=== PATIENT | male | born 2000 | race American Indian/Alaskan Native ===

== ENCOUNTER 2018-11-05 10:55 | Emergency (ER) | payer MEDICAID, OTHER ==
[2018-11-05 11:02] VITALS: BP 127/76
--- NOTE | 2018-11-05 13:11 | Emergency Department Report ---
ED ENT HPI - General Chief complaint: Earache Stated complaint: R EARACHE/CHILLS/FEVER Time Seen by Provider: 11/05/18 12:56 Source: patient Mode of arrival: Ambulatory Limitations: No Limitations - History of Present Illness Initial comments: 17-year-old male comes in for right ear pain chills and fever 2 days. Patient has subjective fever isn't taking cold and flu yesterday. Takes naproxen and muscle relaxant for his pain. Patient has an allergy to ibuprofen. complaint: ear pain Onset/Timin -: days(s) Location: R ear Severity: moderate Quality: aching Consistency: constant Improves with: none Worsens with: none - Related Data Previous Rx's Medication Instructions Recorded Last Taken Type Amoxicillin [Amoxicillin TAB] 875 mg PO BID #20 tablet 11/05/18 Unknown Rx Naproxen [EC-Naproxen] 375 mg PO BID PRN #20 tablet. 11/05/18 Unknown Rx Allergies Allergy/AdvReac Type Severity Reaction Status Date / Time ibuprofen [From Motrin] Allergy Seizure Verified 11/05/18 10:56 ED Dental HPI - General Chief complaint: Earache Stated complaint: R EARACHE/CHILLS/FEVER Time Seen by Provider: 11/05/18 12:56 Source: patient Mode of arrival: Ambulatory Limitations: No Limitations - Related Data Previous Rx's Medication Instructions Recorded Last Taken Type Amoxicillin [Amoxicillin TAB] 875 mg PO BID #20 tablet 11/05/18 Unknown Rx Naproxen [EC-Naproxen] 375 mg PO BID PRN #20 tablet. 11/05/18 Unknown Rx Allergies Allergy/AdvReac Type Severity Reaction Status Date / Time ibuprofen [From Motrin] Allergy Seizure Verified 11/05/18 10:56 ED Review of Systems ROS: Stated complaint: R EARACHE/CHILLS/FEVER Other details as noted in HPI Comment: All other systems reviewed and negative ENT: ear pain ED Past Medical Hx - Past Medical History Hx Seizures: Yes - Social History Smoking Status: Never Smoker Substance Use Type: Marijuana - Medications Home Medications: Home Medications Medication Instructions Recorded Confirmed Last Taken Type Amoxicillin [Amoxicillin TAB] 875 mg PO BID #20 tablet 11/05/18 Unknown Rx Naproxen [EC-Naproxen] 375 mg PO BID PRN #20 tablet. 11/05/18 Unknown Rx ED Physical Exam - General Limitations: No Limitations General appearance: alert, in no apparent distress - Head Head exam: Present: atraumatic, normocephalic - Eye Eye exam: Present: normal appearance, EOMI - Expanded ENT Exam Expanded TM/Canal exam: Erythema: Right TM, Loss of Landmarks: Right TM - Neck Neck exam: Present: normal inspection - Respiratory Respiratory exam: Present: normal lung sounds bilaterally. Absent: respiratory distress - Cardiovascular Cardiovascular Exam: Present: regular rate, normal rhythm. Absent: systolic murmur, diastolic murmur, rubs, gallop - Extremities Exam Extremities exam: Present: normal inspection - Neurological Exam Neurological exam: Present: normal gait - Psychiatric Psychiatric exam: Present: normal affect, normal mood - Skin Skin exam: Present: warm, dry, intact, normal color. Absent: rash ED Course Vital Signs 11/05/18 11:00 Temperature 98.8 F Pulse Rate 93 H Respiratory 18 Rate Blood Pressure 127/76 O2 Sat by Pulse 98 Oximetry ED Medical Decision Making - Medical Decision Making Meningeal now comes in for right ear a fever and chills. This patient has otitis media of the right ear. Patient placed on amoxicillin 875 mg twice a day and naproxen 500 mg by mouth 3 times a day. Advised to wear the patient has an allergic reaction to ibuprofen but patient reports he has been taking naproxen at home without any complications. Critical care attestation.: If time is entered above; I have spent that time in minutes in the direct care of this critically ill patient, excluding procedure time. ED Disposition Clinical Impression: Otitis media Qualifiers: Otitis media type: suppurative Chronicity: acute Laterality: right Recurrence: non-recurrent Spontaneous tympanic membrane rupture: without spontaneous rupture Qualified Code(s): H66.001 - Acute suppurative otitis media without spontaneous rupture of ear drum, right ear Disposition: DC-01 TO HOME OR SELFCARE Is pt being admited?: No Does the pt Need Aspirin: No Condition: Stable Instructions: Otitis Media (ED) Additional Instructions: Complete antibiotics as prescribed. Naproxen as needed for pain management. Symptoms persisted and is worse please follow up with primary care provider Prescriptions: Amoxicillin [Amoxicillin TAB] 875 mg PO BID #20 tablet Naproxen [EC-Naproxen] 375 mg PO BID PRN #20 tablet.dr PRN Reason: Pain , Severe (7-10) Referrals: HARSHAD JEFF MD [Primary Care Provider] - 3-5 Days Forms: Work/School Release Form(ED), Accompanied Note
== END 2018-11-05 14:00 | disposition home or self-care (01) ==
LOC: ED 10:55
DX: H66.001 Acute suppurative otitis media without spontaneous rupture of ear drum, right ear (principal); F12.10 Cannabis abuse, uncomplicated
CPT/HCPCS: 99282

== ENCOUNTER 2019-09-02 07:44 | Emergency (ER) | payer SELFPAY ==
[2019-09-02 07:52] VITALS: BP 126/68
--- NOTE | 2019-09-02 09:26 | Emergency Department Report ---
HPI - General Chief Complaint: Headache Time Seen by Provider: 09/02/19 09:16 - HPI HPI: 18-year-old -Stateless male presents to the emergency department with complaint of a 2-day history of intermittent headache and some muscle tension/spasms in the neck and back. He says that he has a history of muscle spasms. The headache is to the front and posterior and he repeatedly says that it is "mild", and gives it a score of 3 out of 10 in intensity. He denies any vision change, slurred speech, fever, numbness or paresthesias, or any other neurological deficits. No primary care physician. No recent travel or sick contacts at home. It should be noted that the patient has a listed allergy of ibuprofen that apparently causes seizures. However he has no allergy to naproxen which he has taken many times without any side effects, reactions, etc. ED Past Medical Hx - Past Medical History Hx Seizures: Yes (only with taking motrin) - Social History Smoking Status: Current Every Day Smoker Substance Use Type: None - Medications Home Medications: Home Medications Medication Instructions Recorded Confirmed Last Taken Type Amoxicillin [Amoxicillin TAB] 875 mg PO BID #20 tablet 11/05/18 Unknown Rx Cyclobenzaprine [Flexeril] 10 mg PO TID PRN #10 tablet 09/02/19 Unknown Rx Naproxen [EC-Naproxen] 375 mg PO BID PRN #20 tablet. 09/02/19 Unknown Rx ED Review of Systems ROS: Stated complaint: HEADACHE 2DAYS Other details as noted in HPI Comment: All other systems reviewed and negative Constitutional: denies: chills, fever Eyes: denies: eye pain, vision change ENT: denies: ear pain, throat pain Respiratory: denies: cough, shortness of breath Cardiovascular: denies: chest pain, palpitations Musculoskeletal: myalgia. denies: joint swelling Neurological: denies: headache, weakness, numbness, paresthesias Physical Exam - Physical Exam Vital Signs: Vital Signs 09/02/19 07:51 Temperature 97.8 F Pulse Rate 70 Respiratory 18 Rate Blood Pressure 126/68 [Right] O2 Sat by Pulse 99 Oximetry Physical Exam: GENERAL: The patient is well-developed well-nourished. HENT: Normocephalic. Atraumatic. Patient has moist mucous membranes. EYES: Extraocular motions are intact. NECK: Supple. Trachea is midline. No midline tenderness to palpation, step-off or deformity. There is some reproducible bilateral paraspinal tenderness with associated taut musculature that goes down into the trapezius muscle. CHEST/LUNGS: Clear to auscultation. There is no respiratory distress noted. HEART/CARDIOVASCULAR: Regular. There is no tachycardia. There is no murmur. ABDOMEN: There is no abdominal distention. SKIN: Skin is warm and dry. NEURO: The patient is awake, alert, and oriented. The patient is cooperative. The patient has no focal neurologic deficits. Normal speech. Cranial nerves II through XII grossly intact. No facial asymmetry. MUSCULOSKELETAL: There is no tenderness or deformity. There is no limitation range of motion. There is no evidence of acute injury. ED Course Vital Signs 09/02/19 07:51 Temperature 97.8 F Pulse Rate 70 Respiratory 18 Rate Blood Pressure 126/68 [Right] O2 Sat by Pulse 99 Oximetry ED Medical Decision Making - Medical Decision Making This patient presents to the emergency department with a 2-day history of intermittent headache that appears most consistent with a tension headache. He says that the pain starts in what is the bilateral paraspinal muscle and he has some tight musculature that radiates down into the trapezius muscle. He does not have any focal, motor or sensory deficits and his cranial nerves are intact. Vital signs stable throughout his ED course. Patient repeatedly says that the level of discomfort is very mild. For all these reasons the patient does not appear to need any advanced imaging of the head/brain. He will be placed on naproxen and Flexeril. He has been given referrals for primary care and an orthopedist. He will return to the ER with any worsening of his symptoms or any acute distress. As previously stated, he has an allergy to ibuprofen that allegedly causes seizures, but the patient has no allergy to naproxen which he has taken multiple times including recently. Critical Care Time: No Critical care attestation.: If time is entered above; I have spent that time in minutes in the direct care of this critically ill patient, excluding procedure time. ED Disposition Clinical Impression: Muscle spasm Headache Qualifiers: Headache type: unspecified Headache chronicity pattern: episodic headache Intractability: not intractable Qualified Code(s): R51 - Headache Disposition: - TO HOME OR SELFCARE Is pt being admited?: No Condition: Stable Instructions: Tension Headache (ED), Muscle Spasm (ED) Additional Instructions: Please follow-up with a primary care physician in the next few days. I am also giving you a referral for a local orthopedist, Dr. Kaur, to follow-up regarding your history of back pains and muscle spasms. Return to the emergency department with any worsening of your symptoms or any acute distress. You have been prescribed a medication that is sedating and therefore should not be taken prior to driving, working, and responsible for children and in no way should be mixed with alcohol of any quantity. Prescriptions: Naproxen [EC-Naproxen] 375 mg PO BID PRN #20 tablet. PRN Reason: Pain , Severe (7-10) Cyclobenzaprine [Flexeril] 10 mg PO TID PRN #10 tablet PRN Reason: Muscle Spasm Referrals: RHYS BARR MD [Staff Physician] - 3-5 Days NARCISO KAUR MD [Staff Physician] - 3-5 Days [facility] [Provider Group] - 3-5 Days Time of Disposition: 09:26
[2019-09-02] MEDS ORDERED: NAPROXEN 500 MG TAB PO ONE (10:00)
== END 2019-09-02 09:55 | disposition home or self-care (01) ==
LOC: ED 07:44
DX: R51 Headache (principal); M62.838 Other muscle spasm; R56.9 Unspecified convulsions; F17.200 Nicotine dependence, unspecified, uncomplicated; Z79.2 Long term (current) use of antibiotics; Z79.899 Other long term (current) drug therapy; Z88.6 Allergy status to analgesic agent
CPT/HCPCS: 99282

== ENCOUNTER 2020-07-18 20:53 | Emergency (ER) | payer SELFPAY ==
[2020-07-18 21:32] VITALS: BP 131/67
[2020-07-18 22:15] LABS: Basophils % (Auto) 0.6 % (0.0-1.8); Eosinophils # (Auto) 0.2 K/mm3 (0.0-0.4); Eosinophils % (Auto) 3.2 % (0.0-4.3); Hematocrit 42.2 % (35.5-45.6); Hemoglobin 14.1 gm/dl (11.8-15.2); Lymphocytes # (Auto) 2.8 K/mm3 (1.2-5.4); Lymphocytes % (Auto) 44.3 % (13.4-35.0); Mean Corpuscular HGB Conc 33 % (32-34); Mean Corpuscular Volume 86 fl (84-94); Monocytes # (Auto) 0.5 K/mm3 (0.0-0.8); Monocytes % (Auto) 7.2 % (0.0-7.3); Platelet Count 221 K/mm3 (140-440); Red Blood Count 4.89 M/mm3 (3.65-5.03); Red Cell Distribution Width 13.3 % (13.2-15.2)
[2020-07-18 22:40] LABS: Alanine Aminotransferase 11 units/L (7-56); Albumin 4.2 g/dL (3.9-5); BUN/Creatinine Ratio 15; Blood Urea Nitrogen 15 mg/dL (9-20); Calcium 9.3 mg/dL (8.4-10.2); Hemolysis Index 5
--- NOTE | 2020-07-18 23:00 | XRay Report ---
CHEST 2 VIEWS INDICATION / CLINICAL INFORMATION: chest pain. COMPARISON: None available. FINDINGS: SUPPORT DEVICES: None. HEART / MEDIASTINUM: No significant abnormality. LUNGS / PLEURA: No significant pulmonary or pleural abnormality. No pneumothorax. ADDITIONAL FINDINGS: No significant additional findings. IMPRESSION: No acute cardiopulmonary abnormality. Signer Name: Francis Miranda MD Signed: 07/18/2020 10:55 PM Workstation Name: [id number]
--- NOTE | 2020-07-19 01:47 | Emergency Department Report ---
ED Chest Pain HPI - General Chief Complaint: Chest Pain Stated Complaint: CHEST PAIN/DIZZINESS PUI?: No Time Seen by Provider: 07/19/20 00:43 Source: patient Mode of arrival: Ambulatory Limitations: No Limitations - History of Present Illness MD Complaint: chest pain -: Gradual Pain Radiation: none Severity: mild Quality: tightness Consistency: constant Improves With: nothing Worsens With: nothing Other Symptoms: denies: fever, acid taste in mouth, leg swelling, palpitations, burping Treatments Prior to Arrival: none - Related Data Previous Rx's Medication Instructions Recorded Last Taken Type Amoxicillin [Amoxicillin TAB] 875 mg PO BID #20 tablet 11/05/18 Unknown Rx Cyclobenzaprine [Flexeril] 10 mg PO TID PRN #10 tablet 09/02/19 Unknown Rx Naproxen [EC-Naproxen] 375 mg PO BID PRN #20 tablet. 09/02/19 Unknown Rx Allergies Allergy/AdvReac Type Severity Reaction Status Date / Time ibuprofen [From Motrin] Allergy Seizure Verified 11/05/18 10:56 Heart Score - HEART Score History: Slightly suspicious EKG: Normal Age: < 45 Risk factors: No known risk factors Troponin: < normal limit HEART Score: 0 ED Review of Systems ROS: Stated complaint: CHEST PAIN/DIZZINESS Other details as noted in HPI Comment: All other systems reviewed and negative ED Past Medical Hx - Past Medical History Hx Seizures: Yes (only with taking motrin) - Social History Smoking Status: Current Every Day Smoker - Medications Home Medications: Home Medications Medication Instructions Recorded Confirmed Last Taken Type Amoxicillin [Amoxicillin TAB] 875 mg PO BID #20 tablet 11/05/18 Unknown Rx Cyclobenzaprine [Flexeril] 10 mg PO TID PRN #10 tablet 09/02/19 Unknown Rx Naproxen [EC-Naproxen] 375 mg PO BID PRN #20 tablet. 09/02/19 Unknown Rx ED Physical Exam - General Limitations: No Limitations General appearance: alert, in no apparent distress - Head Head exam: Present: atraumatic, normocephalic - Eye Eye exam: Present: normal appearance - ENT ENT exam: Present: mucous membranes moist - Neck Neck exam: Present: normal inspection - Respiratory Respiratory exam: Present: normal lung sounds bilaterally. Absent: respiratory distress - Cardiovascular Cardiovascular Exam: Present: regular rate, normal rhythm. Absent: systolic murmur, diastolic murmur, rubs, gallop - GI/Abdominal GI/Abdominal exam: Present: soft, normal bowel sounds - Rectal Rectal exam: Present: deferred - Extremities Exam Extremities exam: Present: normal inspection - Back Exam Back exam: Present: normal inspection - Neurological Exam Neurological exam: Present: alert, oriented X3 - Psychiatric Psychiatric exam: Present: normal affect, normal mood - Skin Skin exam: Present: warm, dry, intact, normal color. Absent: rash ED Course Vital Signs 07/18/20 21:30 Temperature 98.0 F Pulse Rate 83 Respiratory 18 Rate Blood Pressure 131/67 O2 Sat by Pulse 99 Oximetry ROSHAN score - Roshan Score Age > 65: (0) No Aspirin use within the Past 7 Days: (0) No 3 or more CAD Risk Factors: (0) No 2 or more Angina events in past 24 hrs: (0) No Known CAD with more than 50% Stenosis: (0) No Elevated Cardiac Markers: (0) No ST Deviation Greater than 0.5mm: (0) No ROSHAN Score: 0 ED Medical Decision Making - Lab Data Result diagrams: 07/18/20 22:06 07/18/20 22:06 - EKG Data EKG shows normal: sinus rhythm Rate: normal - EKG Data When compared to previous EKG there are: no significant change Interpretation: no acute changes - Medical Decision Making This patient presents with chest pain that is very unlikely angina or acute coronary syndrome. The emergency department evaluation has not identified any cause for suspicion that this chest pain has a cardiac etiology. Based on their history, EKG (which showed no evidence of ischemia or infarction) and imaging, in addition to the patient's physical exam, I see no evidence at this time for a malignant etiology for the patient's chest pain. There is no acute evidence for pulmonary embolus, acute myocardial infarction, pneumothorax, Boerhaeve syndrome, cardiac tamponade, thoracic artery dissection, or any other emergent cardiac, pulmonary or aortic pathology. Given the low pre-test probability for cardiac etiology of chest pain and the absence of any sign of ischemia or infarction, discharge for outpatient follow-up and further evaluation is reasonable. I have explained to the patient that even though a cardiac problem is very unli aleshia, follow-up and further testing is required to reduce further the already small uncertainty that exists. Other life-threatening diagnoses have been considered. The patient understands the need to return immediately if their symptoms worsen or they develop any new symptoms, and not to engage in any significant exertional activity until follow-up is obtained. Critical care attestation.: If time is entered above; I have spent that time in minutes in the direct care of this critically ill patient, excluding procedure time. ED Disposition Clinical Impression: Chest pain Disposition: DC-01 TO HOME OR SELFCARE Is pt being admited?: No Does the pt Need Aspirin: No Condition: Stable Instructions: Nonspecific Chest Pain, Adult Referrals: PRIMARY CARE, [Primary Care Provider] - 3-5 Days [facility] [Provider Group] - 3-5 Days
--- NOTE | 2020-07-19 11:25 | Electrocardiograph Report ---
[facility] Test Date: 2020-07-18 Test Time: 21:35:09 Pat Name: KENRICK VILLANUEVA Department: Room: Gender: M Senior Asset Manager: MICHELLE : 2000 Requested By: CARLY CHRISTIAN Order Number: [id number] Reading MD: El Almaraz Measurements Intervals [place] Rate: 67 P: 27 AL: 188 QRS: 74 QRSD: 102 T: 53 QT: 386 QTc: 409 Interpretive Statements Sinus rhythm No previous ECG available for comparison Electronically Signed On 07-19-2020 8:24:54 PDT by El Almaraz
== END 2020-07-19 02:03 | disposition home or self-care (01) ==
LOC: ED 20:53
DX: R07.9 Chest pain, unspecified (principal); F17.200 Nicotine dependence, unspecified, uncomplicated; Z79.899 Other long term (current) drug therapy; Z86.69 Personal history of other diseases of the nervous system and sense organs; Z88.6 Allergy status to analgesic agent
CPT/HCPCS: 36415; 71046; 80053; 84484; 85025; 93005

== ENCOUNTER 2021-02-28 08:30 | Emergency (ER) | payer SELFPAY ==
[2021-02-28 08:46] VITALS: BP 126/70
--- NOTE | 2021-02-28 08:49 | Emergency Department Report ---
ED General Adult HPI - General Chief complaint: Headache Stated complaint: I have a headache PUI?: No Time Seen by Provider: 02/28/21 08:47 Source: patient, RN notes reviewed Mode of arrival: Ambulatory Limitations: No Limitations - History of Present Illness Initial comments: The patient is a pleasant and cooperative 20-year-old gentleman. He is not known to myself previously. He denies chronic medical conditions. He presents to the ER today with a complaint of nontraumatic bitemporal and frontal pain, present for a few days. He took Aleve at home, as well as Benadryl, and melanin/melatonin. The headache is not sudden or thunderclap in nature. The headache is not maximal in intensity. The headache is not described as the worst headache of his life. There is no trauma, motor vehicle accident, or recent chiropractic manipulation. The patient reports that he wears glasses, and thinks that his glasses prescription is not up-to-date, and he believes that he needs his glasses prescription to be adjusted. However, he presented to the emergency room, "just to be sure." He denies ocular pain, loss of visual acuity, neck pain, chest pain, abdominal pain, shortness of breath, nausea, vomiting, diarrhea, weakness and ataxia. -: Gradual, days(s) Location: head Severity scale (0 -10): 8 Consistency: intermittent Improves with: none Worsens with: none - Related Data Previous Rx's Medication Instructions Recorded Last Taken Type Acetaminophen [Non-Aspirin Extra 650 mg PO Q6HR PRN #30 tablet 02/28/21 Unknown Rx Strength] Metoclopramide [Reglan] 10 mg PO QID PRN #30 tablet 02/28/21 Unknown Rx Allergies Allergy/AdvReac Type Severity Reaction Status Date / Time ibuprofen [From Motrin] Allergy Seizure Verified 11/05/18 10:56 ED Review of Systems ROS: Stated complaint: MIGRAINES Other details as noted in HPI Comment: All other systems reviewed and negative Eyes: denies: eye pain, eye discharge ENT: denies: dental pain Neurological: headache. denies: weakness, numbness, paresthesias, confusion, abnormal gait, vertigo ED Past Medical Hx - Past Medical History Hx Seizures: Yes (only with taking motrin) - Social History Smoking Status: Current Every Day Smoker - Medications Home Medications: Home Medications Medication Instructions Recorded Confirmed Last Taken Type Acetaminophen [Non-Aspirin Extra 650 mg PO Q6HR PRN #30 tablet 02/28/21 Unknown Rx Strength] Metoclopramide [Reglan] 10 mg PO QID PRN #30 tablet 02/28/21 Unknown Rx ED Physical Exam - General Limitations: No Limitations General appearance: alert, in no apparent distress - Head Head exam: Present: atraumatic, normocephalic - Eye Eye exam: Present: normal appearance, PERRL, EOMI, other (Visual acuity intact to finger counting, color perception, reading at a close distance). Absent: nystagmus - ENT ENT exam: Present: normal exam, normal orophraynx, mucous membranes moist, normal external ear exam - Neck Neck exam: Present: normal inspection, full ROM. Absent: tenderness, meningismus - Respiratory Respiratory exam: Present: normal lung sounds bilaterally. Absent: respiratory distress, wheezes, rales, rhonchi, stridor, decreased breath sounds - Cardiovascular Cardiovascular Exam: Present: regular rate, normal rhythm, normal heart sounds. Absent: bradycardia, tachycardia, irregular rhythm, systolic murmur, diastolic murmur, rubs, gallop - GI/Abdominal GI/Abdominal exam: Present: soft. Absent: distended, tenderness, guarding, rebound, rigid, pulsatile mass - Rectal Rectal exam: Present: deferred - Extremities Exam Extremities exam: Present: normal inspection, full ROM, other (2+ pulses noted in the bilateral upper and lower extremities. There is no palpable cord. negative Homans sign. Muscular compartments are soft. The pelvis is stable.). Absent: pedal edema, calf tenderness - Back Exam Back exam: Present: normal inspection, full ROM. Absent: tenderness, CVA tenderness (R), CVA tenderness (L), paraspinal tenderness, vertebral tenderness - Neurological Exam Neurological exam: Present: alert, oriented X3, normal gait, reflexes normal, ot her (There is no facial droop. The tongue is midline. Extraocular movements are intact bilaterally. There is 5 out of 5 strength in bilateral upper and lower extremities. Sensation is intact to light touch bilateral upper and lower extremities. There is no past-pointing. There is no pronator drift.). Absent: motor sensory deficit - Psychiatric Psychiatric exam: Present: normal affect, normal mood - Skin Skin exam: Present: warm, dry, intact, normal color. Absent: rash ED Course Vital Signs 02/28/21 02/28/21 02/28/21 08:42 09:12 09:28 Temperature 98.0 F Pulse Rate 85 Respiratory 18 16 16 Rate Blood Pressure 126/70 [Left] O2 Sat by Pulse 96 100 Oximetry ED Medical Decision Making - Lab Data Vital Signs 02/28/21 02/28/21 02/28/21 08:42 09:12 09:28 Temperature 98.0 F Pulse Rate 85 Respiratory 18 16 16 Rate Blood Pressure 126/70 [Left] O2 Sat by Pulse 96 100 Oximetry - Medical Decision Making Differential diagnosis, including but not limited to: Migraine headache, sinus headache, tension headache, cluster headache, encounter for medical screening examination Assessment and plan: 20-year-old gentleman, who is afebrile, with reassuring vital signs, with a GCS of 15, with benign temporal discomfort, visual acuity intact to finger counting, color perception, reading at a close distance, normal neurologic exam (there is no facial droop. The tongue is midline. Extraocular movements are intact bilaterally. There is 5 out of 5 strength in bilateral upper and lower extremities. Sensation is intact to light touch bilateral upper and lower extremities. There is no past-pointing. There is no pronator drift. There is normal [id number]. There is a normal gait.) With no direct or consensual photophobia, normal pupils, nursing documented visual acuity reviewed and appreciated. Patient resting comfortably in stretcher, in no acute distress, and on his cell phone. Does not appear to have an emergent medical condition at this time He can take [id number]-[id number] acetaminophen and/or Reglan. He can follow-up with his outpatient tobacco sizer or byproducts maker for outpatient visual testing. Return precautions reviewed. All questions answered Critical care attestation.: If time is entered above; I have spent that time in minutes in the direct care of this critically ill patient, excluding procedure time. ED Disposition Clinical Impression: Headache Qualifiers: Headache type: unspecified Headache chronicity pattern: acute headache Intractability: not intractable Qualified Code(s): R51.9 - Headache, unspecified Disposition: 01 HOME / SELF CARE / HOMELESS Is pt being admited?: No Does the pt Need Aspirin: No Condition: Good Instructions: Visual Disturbances Additional Instructions: Please take the prescribed pain medications as needed and directed. Please follow-up with your outpatient tobacco sizer or byproducts maker for outpatient assessment to have glasses prescription reevaluated. Please follow-up with a general primary care doctor or medical doctor in 4 to 6 weeks for routine checkup and evaluation. Please return to the emergency room right away with new pain, worsened pain, migration of pain, projectile vomiting, change in mental status, confusion, inability tolerate liquid feeds, new, worsened or different symptoms not present on the initial emergency room evaluation Referrals: SUSANNAH GARCÍA MD [Staff Physician] - 3-5 Days
[2021-02-28] MEDS ORDERED: ACETAMINOPHEN 325 MG TAB PO ONE (09:02)
[2021-02-28] MEDS ORDERED: METOCLOPRAMIDE 10 MG TAB PO ONE (09:02)
== END 2021-02-28 10:59 | disposition home or self-care (01) ==
LOC: ED 08:30
DX: R51.9 Headache, unspecified (principal); F17.200 Nicotine dependence, unspecified, uncomplicated; Z86.69 Personal history of other diseases of the nervous system and sense organs; Z88.6 Allergy status to analgesic agent; Z79.899 Other long term (current) drug therapy
CPT/HCPCS: 99282

== ENCOUNTER 2021-08-09 01:30 | Emergency (ER) | payer BC ==
[2021-08-09 01:35] VITALS: BP 115/68
--- NOTE | 2021-08-09 06:32 | Emergency Department Report ---
ED Back Pain/Injury HPI - General Chief Complaint: Back Pain/Injury Stated Complaint: BACK PAIN Time Seen by Provider: 08/09/21 06:27 Source: patient Limitations: No Limitations - History of Present Illness Initial Comments: Patient is a 20-year-old male states he was playing basketball 2 days ago bent over to recover a ball and felt a pull in his back now with low back pain that radiates to right lower extremity described as burning tingling. Is been no numbness or paralysis has been no loss or decrease in bowel or bladder function. Pain is described as 5/10 exacerbated by movement, reaching, lifting. There is no weakness. Pain is exacerbated by attempting work duties and ambulating. Patient has not attempted [id number]-hlr-[id number] NSAIDs or moist heat therapy. Patient has had similar an injury in the past. Patient drove self to ED tonight. Patient is alert oriented x3 and ambulatory with steady gait patient appears nontoxic. MD Complaint: back injury - Related Data Previous Rx's Medication Instructions Recorded Last Taken Type Acetaminophen [Non-Aspirin Extra 650 mg PO Q6HR PRN #30 tablet 02/28/21 Unknown Rx Strength] Metoclopramide [Reglan] 10 mg PO QID PRN #30 tablet 02/28/[address] [Voltaren Dr] 75 mg PO TID PRN #30 tablet 08/09/21 Unknown Rx Menthol/Camphor [[place] 1 applicatio TP Q6H PRN #1 tube 08/09/21 Unknown Rx Ointment] methOCARBAMOL [Robaxin TAB] 750 mg PO Q8H PRN #30 tab 08/09/21 Unknown Rx Allergies Allergy/AdvReac Type Severity Reaction Status Date / Time ibuprofen [From Motrin] Allergy Seizure Verified 11/05/18 10:56 ED Review of Systems ROS: Stated complaint: BACK PAIN Other details as noted in HPI Constitutional: denies: chills, fever Eyes: denies: eye pain, eye discharge, vision change ENT: denies: ear pain, throat pain Respiratory: denies: cough, shortness of breath, wheezing Cardiovascular: denies: chest pain, palpitations Endocrine: no symptoms reported Gastrointestinal: denies: abdominal pain, nausea, diarrhea Genitourinary: denies: urgency, dysuria Musculoskeletal: back pain, myalgia Skin: denies: rash, lesions Neurological: denies: headache, weakness, paresthesias, vertigo Psychiatric: denies: anxiety, depression Hematological/Lymphatic: denies: easy bleeding, easy bruising ED Past Medical Hx - Past Medical History Hx Seizures: Yes (only with taking motrin) - Social History Smoking Status: Current Every Day Smoker - Medications Home Medications: Home Medications Medication Instructions Recorded Confirmed Last Taken Type Acetaminophen [Non-Aspirin Extra 650 mg PO Q6HR PRN #30 tablet 02/28/21 Unknown Rx Strength] Metoclopramide [Reglan] 10 mg PO QID PRN #30 tablet 02/28/[address] [Voltaren Dr] 75 mg PO TID PRN #30 tablet 08/09/21 Unknown Rx Menthol/Camphor [[place] 1 applicatio TP Q6H PRN #1 tube 08/09/21 Unknown Rx Ointment] methOCARBAMOL [Robaxin TAB] 750 mg PO Q8H PRN #30 tab 08/09/21 Unknown Rx ED Physical Exam - General Limitations: No Limitations General appearance: alert, in no apparent distress - Head Head exam: Present: normocephalic, normal inspection - Eye Eye exam: Present: normal appearance, EOMI Pupils: Present: normal accommodation - ENT ENT exam: Present: mucous membranes moist - Neck Neck exam: Present: normal inspection, full ROM. Absent: tenderness - Respiratory Respiratory exam: Present: normal lung sounds bilaterally. Absent: respiratory distress, wheezes - Cardiovascular Cardiovascular Exam: Present: regular rate, normal rhythm, normal heart sounds. Absent: systolic murmur, diastolic murmur, rubs, gallop - GI/Abdominal GI/Abdominal exam: Present: soft, normal bowel sounds. Absent: distended, tenderness - Rectal Rectal exam: Present: deferred - Extremities Exam Extremities exam: Present: normal inspection, full ROM, normal capillary refill. Absent: tenderness - Back Exam Back exam: Present: full ROM, muscle spasm, paraspinal tenderness. Absent: vertebral tenderness - Expanded Back Exam Expanded Back exam: Absent: saddle anesthesia Back exam: Positive Straight Leg Raise: Right, Negative Straight Leg Raising: Left - Neurological Exam Neurological exam: Present: alert, oriented X3, CN II-XII intact, normal gait, reflexes normal. Absent: motor sensory deficit - Expanded Neurological Exam Expanded Patient oriented to: Present: person, place, time Speech: Present: fluid speech Motor strength exam: RLE: 5, LLE: 5 DTR: knee (R): 1+, knee (L): 1+ Best Eye Response ([place]): (4) open spontaneously Best Motor Response ([place]): (6) obeys commands Best Verbal Response ([place]): (5) oriented [place] Total: 15 - Psychiatric Psychiatric exam: Present: normal affect, normal mood - Skin Skin exam: Present: warm, dry, intact, normal color. Absent: rash ED Course Vital Signs 08/09/21 01:33 Temperature 97.4 F L Pulse Rate 57 L Respiratory 18 Rate Blood Pressure 115/68 O2 Sat by Pulse 99 Oximetry ED Medical Decision Making - Medical Decision Making This is a low back strain with no posterior vertebral point tenderness. Pain is reproducible to deep palpation of the paraspinous muscles. There is a positive straight leg right. Plan NSAIDs, short burst steroids, analgesic balm muscle relaxant moist heat therapy, back exercises, follow-up with primary care doctor in 2 to 3 days. Patient verbalized agreement and understanding with discharge plan. Patient will be DC'd home in stable condition at this time. Critical care attestation.: If time is entered above; I have spent that time in minutes in the direct care of this critically ill patient, excluding procedure time. ED Disposition Clinical Impression: Low back strain Qualifiers: Encounter type: initial encounter Qualified Code(s): S39.012A - Strain of muscle, fascia and tendon of lower back, initial encounter Disposition: HOME / SELF CARE / HOMELESS Is pt being admited?: No Does the pt Need Aspirin: No Condition: Stable Instructions: Low Back Sprain or Strain Rehab-SportsMed Additional Instructions: Take medications as prescribed, use moist heat therapy to low back. Do back exercises as directed. Follow-up with your doctor in 2 to 3 days. Return to emergency department should symptoms worsen. Prescriptions: methOCARBAMOL [Robaxin TAB] 750 mg PO Q8H PRN #30 tab PRN Reason: muscl spasm Menthol/Camphor [[place]run Ointment] 1 applicatio TP Q6H PRN #1 tube PRN Reason: pain Diclofenac Dr [Voltaren Dr] 75 mg PO TID PRN #30 tablet PRN Reason: pain Referrals: DAYSI KLEIN MD [Staff Physician] - 3-5 Days JUSTIN GEE MD [Staff Physician] - 3-5 Days Forms: Work/School Release Form(ED) Time of Disposition: 06:36
[2021-08-09] MEDS: dexAMETHasone 20 MG/5 ML VIAL IM ONE ×2 (06:36→06:49)
[2021-08-09] MEDS: ACETAMINOPHEN W/CODEINE 300-30 MG TAB PO ONE ×2 (06:37→06:49)
== END 2021-08-09 07:07 | disposition home or self-care (01) ==
LOC: ED 01:30
DX: S39.012A Strain of muscle, fascia and tendon of lower back, initial encounter (principal); V87.7XXA Person injured in collision between other specified motor vehicles (traffic), initial encounter; Z88.6 Allergy status to analgesic agent; Z79.899 Other long term (current) drug therapy; X58.XXXA Exposure to other specified factors, initial encounter; Y93.89 Activity, other specified; Y92.89 Other specified places as the place of occurrence of the external cause; Y99.8 Other external cause status
CPT/HCPCS: 99282; J1100